=== PATIENT | female | born 1985 | race Asian ===

== ENCOUNTER 2016-11-11 14:00 | Outpatient (CLI) | payer OTHER, MEDICAID | END 2016-11-11 14:01 | disposition home or self-care (01) | DX: R19.7 Diarrhea, unspecified (principal) ==

== ENCOUNTER 2016-12-14 14:59 | Emergency (ER) | payer OTHER, MEDICAID ==
[2016-12-14] MEDS ORDERED: ONDANSETRON ODT 4 MG TABLET TL STA (15:28)
[2016-12-14] MEDS ORDERED: IBUPROFEN 600 MG TABLET PO STA (15:28)
[2016-12-14] MEDS ORDERED: ONDANSETRON ODT 4 MG TABLET ONE (15:29)
[2016-12-14] MEDS ORDERED: IBUPROFEN 600 MG TABLET PO ONE (15:29)
[2016-12-14] MEDS ORDERED: SODIUM CHLORIDE 0.9% 1,000 ML IV ONE (16:59)
== END 2016-12-14 18:25 | disposition home or self-care (01) ==
DX: M54.5 Low back pain (principal); R50.9 Fever, unspecified; J45.909 Unspecified asthma, uncomplicated
CPT/HCPCS: 36415; 80053; 81001; 81003; 81025; 83690; 85025; 85651; 86140; 87275; 87276; 99283; 99284; A9270; Q0162